=== PATIENT | male | born 1995 | race Two or more races ===

== ENCOUNTER 2018-07-20 19:15 | Emergency (ER) | payer OTHER, BC ==
[~2018-07-20] VITALS: Ht 175.3 cm; Wt 122.5 kg
[2018-07-20 19:42] VITALS: BP 155/98
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
== END 2018-07-20 20:54 | disposition home or self-care (01) ==
LOC: ER 19:15
DX: S20.219A Contusion of unspecified front wall of thorax, initial encounter (principal); V43.52XA Car driver injured in collision with other type car in traffic accident, initial encounter; Y93.89 Activity, other specified; Y92.410 Unspecified street and highway as the place of occurrence of the external cause; Y99.8 Other external cause status
CPT/HCPCS: 71046; 99283

== ENCOUNTER 2018-07-22 14:38 | Emergency (ER) | payer OTHER, BC ==
[~2018-07-22] VITALS: Ht 175.3 cm; Wt 120.2 kg
[2018-07-22 15:35] VITALS: BP 169/80
[2018-07-22] MEDS ORDERED: HYDR-3164 PO (15:46)
[2018-07-22] MEDS ORDERED: ORPH100T PO (15:46)
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
== END 2018-07-22 16:46 | disposition home or self-care (01) ==
LOC: ER 14:38
DX: S16.1XXA Strain of muscle, fascia and tendon at neck level, initial encounter (principal); M54.6 Pain in thoracic spine; V43.52XA Car driver injured in collision with other type car in traffic accident, initial encounter; Y93.89 Activity, other specified; Y92.410 Unspecified street and highway as the place of occurrence of the external cause; Y99.8 Other external cause status
CPT/HCPCS: 72125; 72128; 99284